=== PATIENT | female | born 1980 | race Caucasian/White ===

== ENCOUNTER 2018-08-20 07:02 | Day surgery (SDC) | payer BC, OTHER ==
[~2018-08-20 07:02] MED LIST: Dexamethasone 4 MG/ML 5 ML MDV ONE; HYDROmorphone 0.5 MG/0.5 ML Syringe ONE; Lidocaine 1%/Sod Bicarbonate in NS 8.4% 1 ML Syringe IDERM PRN; Midazolam 1 MG/ML 2 ML SDV ONE; Ondansetron 4 MG/2 ML SDV ONE; Propofol 200 MG/20 ML SDV ONE; Rocuronium 50 MG/5 ML Vial ONE; Sodium Chloride 0.9% 10 ML Syringe FLUSH PRN; fentaNYL 250 MCG/5 ML SDV ONE
[2018-08-20] MEDS ORDERED: Bupivacaine 0.5% 30 ML SDV ONE (07:09)
[2018-08-20] MEDS ORDERED: Lidocaine 1% with EPINEPHrine 1:100,000 20 ML MDV ONE (07:09)
[2018-08-20] MEDS ORDERED: ceFAZolin 1 GM Vial ONE (07:17)
[2018-08-20] MEDS: Lactated Ringers 1,000 ML IV SCH ×2 (07:30→10:19)
[2018-08-20] MEDS ORDERED: Albuterol 0.083% 2.5 MG/3 ML Neb Soln NEB ONE ×2 (07:31→09:50)
--- NOTE | 2018-08-20 07:33 | PCM.PREANE ---
Preanesthetic Assessment - Anesthesia/Transfusion/Family Hx Anesthesia History: Prior Anesthesia Without Reaction Family History of Anesthesia Reaction: No Transfusion History: No Prior Transfusion(s) Type of Transfusion Reactions: Reports: Unknown - Review of Systems General: No Symptoms Pulmonary: Other (smoker, last cig at 0500, smokers cough) Cardiovascular: No Symptoms Gastrointestinal: Other (zantac daily patient feels its controlled, last dose this am at 0500) Neurological: No Symptoms Other: Reports: Depression, Anxiety - Physical Assessment NPO Status Date: 08/19/18 NPO Status Time: 23:00 Pulse: 77 O2 Sat by Pulse Oximetry: 97 Respiratory Rate: 16 Blood Pressure: 159/104 Weight: 111 kg ASA Class: 2 Mental Status: Alert & Oriented x3 Airway Class: Mallampati = 2 Dentition: Reports: Normal Dentition Thyro-Mental Finger Breadths: 3 Mouth Opening Finger Breadths: 3 ROM/Head Extension: Full Lungs: Clear to Auscultation, Normal Respiratory Effort Cardiovascular: Regular Rate, Regular Rhythm - Allergies Allergies/Adverse Reactions: Allergies Allergy/AdvReac Type Severity Reaction Status Date / Time No Known Allergies Allergy Verified 08/19/18 11:22 - Blood Blood Available: No Product(s) Available: None - Anesthesia Plan Pre-Op Medication Ordered: None Beta Josefa: Metoprolol Med Last Dose Date: 08/20/18 Med Last Dose Time: 05:00 - Acknowledgements Anesthesia Type Planned: General Anesthesia Pt an Appropriate Candidate for the Planned Anesthesia: Yes Alternatives and Risks of Anesthesia Discussed w Pt/Guardian: Yes Pt/Guardian Understands and Agrees with Anesthesia Plan: Yes PreAnesthesia Questionnaire HEENT History: Reports: Impaired Vision, Sinusitis, Other (See Below) Other HEENT History: wears glasses Cardiovascular History: Reports: High Cholesterol, Hypertension Respiratory History: Reports: Other (See Below) Other Respiratory History: chronic cough Gastrointestinal History: Reports: GERD Genitourinary History: Reports: None 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: , 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 Other OB/BYN History: heavy menses, dysmenorrhea Other Musculoskeletal History: R shoulder impingement, R knee sprain, sciatic neuritis and lumbar L5-S1 Neurological History: Reports: None Psychiatric History: Reports: Depression Endocrine/Metabolic History: Reports: None Hematologic History: Reports: None Immunologic History: Reports: None Oncologic (Cancer) History: Reports: None Dermatologic History: Reports: None - Past Surgical History Head Surgeries/Procedures: Reports: None HEENT Surgical History: Reports: Oral Surgery Cardiovascular Surgical History: Reports: None Respiratory Surgical History: Reports: None GI Surgical History: Reports: None Female Surgical History: Reports: None Male Surgical History: Reports: None Neurological Surgical History: Reports: None Musculoskeletal Surgical History: Reports: Other (See Below) Other Musculoskeletal Surgeries/Procedures:: L hand surgery Oncologic Surgical History: Reports: None - SUBSTANCE USE Smoking Status *Q: Current Every Day Smoker Recreational Drug Use History: No - HOME MEDS Home Medications: Home Meds Ranitidine HCl [Zantac] 1 tab PO BEDTIME 09/26/16 [History] Metoprolol Succinate [Toprol XL 50mg] 50 mg PO DAILY 08/19/18 [History] - CURRENT (IN HOUSE) MEDS Current Meds: Current Medications Lactated Ringer's (Ringers, Lactated) 1,000 mls @ 125 mls/hr IV ASDIRECTED HOWARD Stop: 08/20/18 23:00 Lidocaine/Sodium Bicarbonate (Buffered Lidocaine 1% In Ns 8.4%) 0.25 ml IDERM ONETIME PRN PRN Reason: Prior to IV Start Stop: 08/20/18 18:00 Sodium Chloride (Saline Flush) 10 ml FLUSH ASDIRECTED PRN PRN Reason: Keep Vein Open Stop: 08/20/18 18:00 Discontinued Medications Bupivacaine HCl (Marcaine 0.5%) Confirm Administered Dose 30 ml .ROUTE .STK-MED ONE Stop: 08/20/18 07:10 Cefazolin Sodium (Ancef) Confirm Administered Dose 2 gm .ROUTE .STK-MED ONE Stop: 08/20/18 07:18 Dexamethasone (Dexamethasone) Confirm Administered Dose 20 mg .ROUTE .STK-MED ONE Stop: 08/20/18 07:00 Fentanyl (Sublimaze) Confirm Administered Dose 250 mcg .ROUTE .STK-MED ONE Stop: 08/20/18 07:00 Hydromorphone HCl (Dilaudid) Confirm Administered Dose 0.5 mg .ROUTE .STK-MED ONE Stop: 08/20/18 07:00 Lidocaine/Epinephrine (Xylocaine 1% With Epinephrine 1:100,000) Confirm Administered Dose 20 ml .ROUTE .STK-MED ONE Stop: 08/20/18 07:10 Midazolam HCl (Versed 1 Mg/Ml) Confirm Administered Dose 2 mg .ROUTE .[employer]-MED ONE Stop: 08/20/18 07:00 Ondansetron HCl (Zofran) Confirm Administered Dose 4 mg .ROUTE .[employer] ONE Stop: 08/20/18 07:00 Propofol (Diprivan 20 Ml) Confirm Administered Dose 200 mg .ROUTE .[employer] ONE Stop: 08/20/18 07:00 Rocuronium [place] (Zemuron) Confirm Administered Dose 50 mg .ROUTE .[employer] ONE Stop: 08/20/18 07:00
[2018-08-20] MEDS ORDERED: Albuterol 0.083% 2.5 MG/3 ML Neb Soln ONE (07:43)
--- NOTE | 2018-08-20 07:59 | PCM.OPNOTE ---
- General Post-Op/Procedure Note Date of Surgery/Procedure: 08/20/18 Operative Procedure(s): Total vaginal hysterectomy Findings: Slight ridge to anterior lip of cervix, but otherwise grossly normal cervix and uterus. Ovaries only seen briefly and looked grossly normal. Fallopian tubes not able to be easily identified. Pre Op Diagnosis: Dysmenorrhea. 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 Speed/safety of procedure Pathology: Cervix and uterus sent to pathology for further evaluation Fluid Replacement, Intraop: 1,500 Output, Urine Amount: 70 EBL in mLs: 50 Complications: None Condition: Good Free Text/Narrative:: The risks, benefits, indications, potential complications, and alternatives were explained to the patient and informed consent obtained. The patient was taken to the Operating Room where general anesthesia was induced without complication and found to be adequate. The patient was placed in dorsal lithotomy with elida stirrups and an exam under anesthesia revealed the findings detailed above. The patient was then prepped and draped in the usual sterile fashion. Arciniega catheter placed in the bladder. A weighted speculum was placed in the vagina and the cervix was grasped with a double tooth tenaculum. The cervix was injected circumferentially with 10 mL of 1% lidocaine with dilute epinephrine. The cervix was then circumferentially incised with a scalpel. The posterior cul-de-sac was entered sharply without difficulty. An 0-Vicryl pop-off suture was placed posteriorly to include the posterior vaginal mucosa and the posterior peritoneum. The short weighted speculum was replaced with a long weighted speculum into the peritoneal cavity posteriorly. The bladder was dissected away from the pubovesical cervical fascia anteriorly with a sponge and blunt dissection. The uterosacral ligaments were grasped on either side with the ligasure, cauterized, and transected. Hemostasis was assured. A raytec was used for further blunt dissection of the bladder away from the pubovesical cervical fascia and then the anterior cul de sac was entered sharply with Metzenbaum scissors. The cardinal ligaments were then serially clamped on both sides with the Ligasure, cauterized, and transected. The uterine arteries were then clamped with the Ligasure, cauterized, and transected. Hemostasis was adequate. Both cornua were then clamped, cauterized, and transected and the uterus was removed. Inspection of pedicles confirmed hemostasis. The posterior vaginal cuff was closed with a running locked 0 vicryl suture. The vaginal cuff was closed in a running locked fashion with 0-Vicryl. Hemostasis was noted. All sponge, lap, needle, and instrument counts were correct x 2. The patient tolerated the procedure well and there were no complications. Arcinieag catheter taken out in PACU
[2018-08-20] MEDS ORDERED: HYDROmorphone 0.5 MG/0.5 ML Syringe ONE (08:20)
[2018-08-20] MEDS ORDERED: Neostigmine Methylsulfate 1 MG/ML 5 ML Syringe ONE (08:45)
[2018-08-20] MEDS ORDERED: Lactated Ringers 1,000 ML ONE (09:37)
[2018-08-20] MEDS ORDERED: Ketorolac 30 MG/ML SDV ONE (09:45)
[2018-08-20] MEDS ORDERED: HYDROmorphone 0.5 MG/0.5 ML Syringe IVPUSH PRN (09:50)
[2018-08-20] MEDS ORDERED: fentaNYL 100 MCG/2 ML SDV IVPUSH PRN (09:50)
--- NOTE | 2018-08-20 09:50 | PCM.POSTAN ---
POST ANESTHESIA ASSESSMENT - MENTAL STATUS Mental Status: Alert, Oriented - VITAL SIGNS Pulse Rate: 99 SaO2: 100 Resp Rate: 18 Blood Pressure: 138/89 Temperature: 36.8 C - RESPIRATORY Respiratory Status: Respiratory Rate WNL, Airway Patent, O2 Saturation Stable, Supplemental Oxygen - CARDIOVASCULAR CV Status: Pulse Rate WNL, Blood Pressure Stable - GASTROINTESTINAL GI Status: No Symptoms - PAIN Pain Score: 5 (fentanyl and toradol given) - POST OP HYDRATION Hydration Status: Adequate & Stable
[2018-08-20] MEDS ORDERED: diphenhydrAMINE 50 MG/ML SDV IVPUSH PRN (10:11)
[2018-08-20 12:02] VITALS: BP 138/89
--- NOTE | 2018-08-20 12:02 | PCM48HPAN ---
Post Anesthesia Note - EVALUATION WITHIN 48HRS OF ANESTHETIC Vital Signs in Normal Range: Yes Patient Participated in Evaluation: Yes Respiratory Function Stable: Yes Airway Patent: Yes Cardiovascular Function Stable: Yes Hydration Status Stable: Yes Pain Control Satisfactory: Yes Nausea and Vomiting Control Satisfactory: Yes Mental Status Recovered: Yes Pulse Rate: 99 Resp Rate: 18 Temperature: 36.8 C Blood Pressure: 138/89
== END 2018-08-20 11:50 | disposition home or self-care (01) ==
LOC: JD.SDS 07:02
PROVIDERS: ATTEND Obstetrics & Gynecology
DX: D25.9 Leiomyoma of uterus, unspecified (principal); N80.0 Endometriosis of uterus; I10 Essential (primary) hypertension; F17.210 Nicotine dependence, cigarettes, uncomplicated; K21.9 Gastro-esophageal reflux disease without esophagitis; F32.9 Major depressive disorder, single episode, unspecified
CPT/HCPCS: 36415; 58260; 80048; 81025; 85025; 86850; 86900; 86901; 94640; J0690; J1100; J1170; J1200; J1885; J2250; J2405; J2704; J2710; J3010; J3490; J7120